=== PATIENT | female | born 1985 ===

== ENCOUNTER 2018-06-30 16:01 | Emergency (ER) | payer SELFPAY ==
[2018-06-30 16:11] VITALS: BP 119/76; PULSE 70; TEMP 98.5; O2SAT 100
[2018-06-30] MEDS ORDERED: Lidocaine 1% w Epi 1:100,000 Inj INJ STA (16:21)
--- NOTE | 2018-06-30 16:42 | C.PDOC ---
History Of Present Illness 33 year old female presents to the ED for evaluation of a left armpit abscess for 1 month. She denies fever, nausea, vomiting, and any other associated symptoms. Time Seen by Provider: 06/30/18 16:21 Chief Complaint (Nursing): Abnormal Skin Integrity History Per: Patient History/Exam Limitations: no limitations Onset/Duration Of Symptoms: Other (x1 month) Current Symptoms Are (Timing): Still Present Past Medical History Reviewed: Historical Data, Nursing Documentation, Vital Signs Vital Signs: Last Vital Signs Temp 98.5 F 06/30/18 16:08 Pulse 70 06/30/18 16:08 Resp 20 06/30/18 16:08 BP 119/76 06/30/18 16:08 Pulse Ox 100 06/30/18 16:08 Family History: States: Unknown Family Hx - Social History Hx Alcohol Use: Yes Hx Substance Use: No - Immunization History Hx Tetanus Toxoid Vaccination: No Hx Influenza Vaccination: No Hx Pneumococcal Vaccination: No Review Of Systems Except As Marked, All Systems Reviewed And Found Negative. Constitutional: Negative for: Fever Gastrointestinal: Negative for: Nausea, Vomiting Skin: Positive for: Other (left armpit abscess.) Physical Exam - Physical Exam Appears: Well, No Acute Distress Skin: Warm, Dry, Other (left armpit abscess.) Head: Atraumatic, Normacephalic Eye(s): bilateral: Normal Inspection Neck: Normal ROM, Supple Respiratory: Other (NARD) Neurological/Psych: Oriented x3, Normal Speech, Normal Cognition ED Course And Treatment O2 Sat by Pulse Oximetry: 100 (RA) Pulse Ox Interpretation: Normal - Incision & Drainage Of Abscess Anesthesia: Lidocaine 1%, With Epi Procedure: Drained Pus, Probed To Break Up Loculations, Packed W/Gauze Medical Decision Making Medical Decision Making: Plan: -Motrin Percocet Zofran Incision and drainage Progress/Update: Patient stable for discharge home. Advised to follow up in the ED within 2 days. Disposition Counseled Patient/Family Regarding: Diagnosis, Need For Followup, Rx Given - Disposition Referrals: [facility] EMERGENCY DEPARTMENT [Provider Group] Disposition: HOME/ ROUTINE Disposition Time: 17:15 Condition: IMPROVED Additional Instructions: VUELVA EN 2 EPPS PARA LA EVALUACIN DEL EMBALAJE DE HERIDAS. PHILLIP MEDINOS PARA EL DOLOR FRANCI EST PRESCRITO Prescriptions: Ibuprofen [Motrin] 600 mg PO Q6 #30 tab Instructions: Boil (DC) Forms: [employer] ([place]ay[place] Islander) Print Language: HONG KONGER - Clinical Impression Clinical Impression: Abscess - Scribe Statement The provider has reviewed the documentation as recorded by the Scribe (Celeste Caraballo) Provider Attestation: All medical record entries made by the Scribe were at my direction and personally dictated by me. I have reviewed the chart and agree that the record accurately reflects my personal performance of the history, physical exam, medical decision making, and the department course for this patient. I have also personally directed, reviewed, and agree with the discharge instructions and disposition.
[2018-06-30] MEDS ORDERED: Oxycodone/Acetaminophen 5/325 mg Tab PO STA (17:14)
[2018-06-30] MEDS ORDERED: Oxycodone/Acetaminophen 5/325 mg Tab ONE (17:21)
[2018-06-30 17:23] VITALS: RESP 16
== END 2018-06-30 17:22 | disposition home or self-care (01) ==
LOC: C.ER 16:01
DX: L02.412 Cutaneous abscess of left axilla (principal)

== ENCOUNTER 2018-07-02 11:28 | Emergency (ER) | payer SELFPAY ==
[2018-07-02 11:35] VITALS: BP 110/72; PULSE 76; RESP 17; TEMP 98; O2SAT 100; BMI 30.7
--- NOTE | 2018-07-02 11:44 | C.PDOC ---
History Of Present Illness 33 y/o female presents to the ER for wound check to the left axilla. Patient states that she had an I&D in [facility] ER 2 days ago. Patient reports that she has scant discharge from the area. Denies having fever and chills. Time Seen by Provider: 07/02/18 11:42 Chief Complaint (Nursing): Wound Check History Per: Patient History/Exam Limitations: no limitations Past Medical History Reviewed: Historical Data, Nursing Documentation, Vital Signs Vital Signs: Last Vital Signs Temp 98.0 F 07/02/18 11:33 Pulse 76 07/02/18 11:33 Resp 17 07/02/18 11:33 BP 110/72 07/02/18 11:33 Pulse Ox 100 07/02/18 11:33 - Medical History PMH: No Chronic Diseases Surgical History: No Surg Hx Family History: States: No Known Family Hx - Social History Hx Alcohol Use: Yes Hx Substance Use: No - Immunization History Hx Tetanus Toxoid Vaccination: No Hx Influenza Vaccination: No Hx Pneumococcal Vaccination: No Review Of Systems Except As Marked, All Systems Reviewed And Found Negative. Constitutional: Negative for: Fever, Chills Physical Exam - Physical Exam Appears: Non-toxic, No Acute Distress Skin: Normal Color, Warm, Dry, Other (left axilla: packing in place, improved swelling compare to last PE, no cellulitis) Head: Atraumatic, Normacephalic Eye(s): bilateral: Normal Inspection Respiratory: Other (NARD) Neurological/Psych: Oriented x3, Normal Speech ED Course And Treatment O2 Sat by Pulse Oximetry: 100 (RA) Pulse Ox Interpretation: Normal Medical Decision Making Medical Decision Making: Packing has been removed from the area. There is no more pus discharge. Patient has been instructed about wound care and has been discharged. Disposition Counseled Patient/Family Regarding: Diagnosis, Need For Followup - Disposition Disposition: HOME/ ROUTINE Disposition Time: 11:53 Condition: IMPROVED Instructions: Wound Care (DC) Forms: [employer] (Slovak) - Clinical Impression Clinical Impression: Change of dressing, Abscess packing removal - Scribe Statement The provider has reviewed the documentation as recorded by the Reneeibpeterson Obando Provider Attestation: All medical record entries made by the Scribe were at my direction and personally dictated by me. I have reviewed the chart and agree that the record accurately reflects my personal performance of the history, physical exam, medical decision making, and the department course for this patient. I have also personally directed, reviewed, and agree with the discharge instructions and disposition.
== END 2018-07-02 12:20 | disposition home or self-care (01) ==
LOC: C.ER 11:28
DX: Z48.00 Encounter for change or removal of nonsurgical wound dressing (principal)